=== PATIENT | male | born 1975 | race Caucasian/White ===

== ENCOUNTER 2024-07-13 20:22 | Emergency (ER) | payer MEDICAID ==
[~2024-07-13] VITALS: Ht 172.7 cm; Wt 95.4 kg
[2024-07-13 20:26] VITALS: O2SAT 98
[2024-07-13 20:49] VITALS: BP 154/97; PULSE 88; RESP 16; TEMP 98.4; O2SAT 97
[2024-07-14] MEDS ORDERED: CEPH500C2 MT (01:21)
[2024-07-14] MEDS ORDERED: IBUP-2029 MT (01:21)
== END 2024-07-14 01:56 | disposition home or self-care (01) ==
LOC: ER 20:22
DX: L03.012 Cellulitis of left finger (principal); E78.00 Pure hypercholesterolemia, unspecified
CPT/HCPCS: 99283